=== PATIENT | female | born 1970 | race American Indian/Alaskan Native ===

== ENCOUNTER 2018-06-15 17:21 | Emergency (ER) | payer BC ==
--- NOTE | 2018-06-15 17:49 | Emergency Department Report ---
Blank Doc - Documentation Documentation: This is a 48-year-old female that presents with left facial numbness upon awak ing this morning. She went to her PCP this morning her advised to f/u in ER. Patient is currently taking thyroid medication, loratidine, antibiotics, and vitamins prescribed. Patient states she all of the medication at once last Thursday morning and felt pressure and numbness to left side of face. This initial assessment diagnostic orders/clinical plan/treatment(s) is/are subject to change based on patient's health status, clinical progression and re- assessment by fellow clinical providers in the ED. Further treatment and workup at subsequent clinical providers discretion. Patient/guardians urged not to elope from ED s their condition may be serious if not clinically assessed and managed. Initial orders include: Fast Track for evaluation.
[2018-06-15 21:10] VITALS: BP 120/73
--- NOTE | 2018-06-15 22:42 | Emergency Department Report ---
ED Neuro Deficit HPI - General Chief Complaint: Neuro Symptoms/Deficit Stated Complaint: NUMBNESS L SIDE FACE/PRESSURE ABOVE L EYE Time Seen by Provider: 06/15/18 17:44 Source: patient Mode of arrival: Ambulatory Limitations: No Limitations - History of Present Illness Initial Comments: 48-year-old [place] female comes in complaining of left facial numbness and left eye pressure that started on 06/07/2018 upon awakening. Patient reports no other symptoms reported. Patient reports that she was seen by her general practitioner was told to come to the emergency room. Patient reports that she is on hormone replacement pellets recently was treated for sinusitis. -: days(s) (8) Location: left face Presenting Symptoms: Present: Facial Droop/Numbness History of same: No Place: home On Anticoagulants: No Associated Symptoms: denies other symptoms Treatments Prior to Arrival: none - Related Data Home Medications: Home Medications Medication Instructions Recorded Confirmed Last Taken Progesterone, Micronized 200 mg PO QPM 05/26/18 05/26/18 Unknown [Progesterone] Thyroid,Pork [Thyroid] 60 mg PO QDAY 05/26/18 05/26/18 Unknown Previous Rx's Medication Instructions Recorded Last Taken Type Amoxicillin/K Clav Tab [Augmentin 1 each PO Q12HR #14 tablet 05/28/18 Unknown Rx 875MG TAB] Loratadine/Pseudoephedrine 1 each PO DAILY PRN #7 tab.er.24h 05/28/18 Unknown Rx [Loratadine-D 24Hr Tablet] Allergies/Adverse Reactions: Allergies Allergy/AdvReac Type Severity Reaction Status Date / Time No Known Allergies Allergy Unverified 05/25/18 21:58 ED Review of Systems ROS: Stated complaint: NUMBNESS L SIDE FACE/PRESSURE ABOVE L EYE Other details as noted in HPI Comment: All other systems reviewed and negative ED Past Medical Hx - Past Medical History Previous Medical History?: Yes Hx Congestive Heart Failure: No Hx Diabetes: No Hx Asthma: No Hx COPD: No Additional medical history: hypothyroid - Surgical History Past Surgical History?: Yes Hx Breast Surgery: Yes (breast biopsy) Additional Surgical History: x 1 - Social History Smoking Status: Never Smoker Substance Use Type: None - Medications Home Medications: Home Medications Medication Instructions Recorded Confirmed Last Taken Type Progesterone, Micronized 200 mg PO QPM 05/26/18 05/26/18 Unknown History [Progesterone] Thyroid,Pork [Thyroid] 60 mg PO QDAY 05/26/18 05/26/18 Unknown History Amoxicillin/K Clav Tab [Augmentin 1 each PO Q12HR #14 tablet 05/28/18 Unknown Rx 875MG TAB] Loratadine/Pseudoephedrine 1 each PO DAILY PRN #7 tab.er.24h 05/28/18 Unknown Rx [Loratadine-D 24Hr Tablet] ED Neuro Physical Exam - General Limitations: No Limitations General appearance: alert, in no apparent distress Suspected Stroke: No - Eye Eye exam: Present: EOMI - ENT ENT exam: Present: mucous membranes moist - Neck Neck exam: Present: normal inspection, full ROM - Respiratory Respiratory exam: Present: normal lung sounds bilaterally. Absent: respiratory distress - Cardiovascular Cardiovascular Exam: Present: regular rate, normal rhythm. Absent: systolic murmur, diastolic murmur, rubs, gallop - Extremities Exam Extremities exam: Present: normal inspection, full ROM - Back Exam Back exam: Present: normal inspection - Neurological Exam Neurological exam: Present: alert, oriented X3, normal gait. Absent: motor s ensory deficit - NIHSS Assessment Interval: Baseline 1a. Level of Consciousness: alert/keenly responsive 1c. LOC Commands: performs tasks correctly 2. Best Gaze: normal 3. Visual: no visual loss 4. Facial Palsy: normal symmetrical movement 5b. Motor Arm Right: no drift 5a. Motor Arm Left: no drift 6a. Motor Leg Left: no drift 6b. Motor Leg Right: no drift 7. Limb Ataxia: absent 8. Sensory: normal 9. Best Language: no aphasia 11. Extinction/Inattention: no abnormality ED Course Vital Signs 06/15/18 06/15/18 17:47 21:01 Temperature 98.4 F Pulse Rate 83 77 Respiratory 16 18 Rate Blood Pressure 140/80 120/73 O2 Sat by Pulse 100 100 Oximetry - Lab Data Lab Results 06/15/18 Range/Units 17:57 POC Glucose 76 (70-105) - Radiology Data Radiology results: report reviewed CT head and brain without contrast Impression: No acute intercranial processes noted no change. Chronic sinusitis signed by Dr. Sonam Squires - Medical Decision Making Patient has been evaluated by this provider and fast. CT scan shows no acute intra-cranial process shows chronic sinusitis. Discussed the patient I will refer her to neurology for further evaluation. Critical care attestation.: If time is entered above; I have spent that time in minutes in the direct care of this critically ill patient, excluding procedure time. ED Disposition Clinical Impression: Numbness and tingling of left side of face Disposition: DC-01 TO HOME OR SELFCARE Is pt being admited?: No Does the pt Need Aspirin: No Condition: Stable Instructions: Paresthesia (ED) Additional Instructions: Please follow up with the neurologist. Your CT scan shows no acute intracranial processes. Shows that she do have chronic sinusitis. Please follow up with her primary care provider as well. Referrals: PRIMARY CARE, [Primary Care Provider] - 3-5 Days [facility] [Provider Group] - 3-5 Days Forms: Work/School Release Form(ED)
--- NOTE | 2018-06-21 13:44 | Cat Scan Report ---
FINAL REPORT EXAM: CT HEAD/BRAIN WO CON HISTORY: headache TECHNIQUE: Standard unenhanced CT of the head at 5.0 millimeter axial increments. PRIORS: CT head 05/25/2018 FINDINGS: The ventricular system is normal in size and configuration. There is no evidence for parenchymal volu me loss. There is no evidence for mass lesion, mass effect, midline shift, acute intracranial hemorrhage, or a cute ischemia/ infarction. No evidence for acute skull fracture is seen. No abnormality in the overlying scalp soft tissues is seen. Visualized paranasal sinuses demonstrates opacification of the right frontal and anterior right ethmo id sinuses. There is also mucosal thickening throughout the remainder of the bilateral ethmoids. IMPRESSION: No acute intracranial process noted. No change. Chronic sinusitis
== END 2018-06-15 22:56 | disposition home or self-care (01) ==
LOC: ED 17:21
DX: R20.0 Anesthesia of skin (principal); R20.2 Paresthesia of skin; H57.12 Ocular pain, left eye; E03.9 Hypothyroidism, unspecified
CPT/HCPCS: 70450; 82962